=== PATIENT | male | born 1965 | race Caucasian/White ===

== ENCOUNTER 2022-02-15 00:32 | Day surgery (SDC) | payer BC, SELFPAY ==
[2022-01-30 13:47] VITALS: BMI 35.0
--- NOTE | 2022-02-11 11:46 | SUR.PREOP ---
pts called to report she has been unable to find mag citrate. let her know that mag citrate is currently unavailable and pt will need to procede with the golytely prep as ordered, skipping the mag citrate. voiced understanding.
--- NOTE | 2022-02-14 13:07 | P.PNAN_ITS ---
Anes - Initial Pre Proc Eval Procedure: Operation Date: 02/15/22 09:30 Proposed Procedures p Screening Colonoscopy - Gilmer Pereira MD Date/Time: 02/14/22 13:07 Surgeon: Gilmer Pereira MD Pre Op Diagnosis: neoplasm screening, hx of colon polyps Patient Data Age: 56 Gender: M Height: 1.85 m Weight: 120.5 kg Allergies Allergy/AdvReac Type Severity Reaction Status Date / Time No Known Allergies Allergy Verified 02/15/22 08:46 Home Medications Medication Instructions Recorded Confirmed Type calcium carbonate 600 mg-vitamin 1 cap PO DAILY 07/30/19 01/30/22 History D3 12.5 mcg (500 unit) capsule (Calcium 600 with Vitamin D3) vitamin B complex (B-Complex 1 tablet PO DAILY 07/30/19 01/30/22 History tablet) peg 3350-electrolytes 236 240 ml PO Q10M #4,000 mL 01/23/22 Rx gram-22.74 gram-6.74 gram-5.86 gram solution (Golytely) ascorbic acid (vitamin C) 500 mg 500 mg PO DAILY 01/30/22 01/30/22 History tablet (Vitamin C) losartan 50 mg tablet 50 mg PO DAILY 01/30/22 01/30/22 History zinc 50 mg tablet 50 mg PO DAILY 01/30/22 01/30/22 History Patient hx anesthesia problems: none Family hx anesthesia problems: none Results Review: All pre-operative results and documents have been reviewed as part of the pre- operative evaluation. [facility] Past Medical History Medical History (Updated 02/15/22 @ 09:53 by Gilmer Pereira MD) Clavicle fracture Dupuytren contracture Left hand Hemorrhoids Hypertension Rib fracture Surgical History Surgical History H/O colonoscopy History of appendectomy History of orthopedic surgery Left hand for Dupuytren contracture Hx of tonsillectomy Family History Family History Mother Diabetes mellitus Hypertension Social History Social History Smoking status: Never smoker Alcohol intake: former Substance use: former Substance use type: does not use Living arrangements: with family Gender identity (if verbalized by the patient): Male Spiritual care concerns: No Agree to blood products: Yes Anes - Eval Final PreProcedure Day of Procedure 02/14/22 13:07 Patient weight: obese Heart: regular rate and rhythm Lungs: clear to auscultation Airway: Mallampati scale class II Neurological: alert and oriented Last oral intake: >/= 8 hours ASA classification: III Emergent: no Anesthetic plan: proceed Anesthesia type and monitoring: general GIVS and standard monitoring Results Review: All pre-operative results and documents have been reviewed as part of the pre- operative evaluation. Informed Consent: The patient's anesthetic plan and its attendant risks and benefits were discussed with the patient/family/POA. Questions were solicited and answers provided to the satisfaction of the patient/family/POA.
[2022-02-15 08:40] VITALS: BP 152/96; PULSE 72; RESP 18; TEMP 36.3; O2SAT 98; BMI 34.0
[2022-02-15] MEDS: LACTATED RINGERS 1,000 ML 150 ML IV CONT (09:02)
--- NOTE | 2022-02-15 09:52 | PM.IMHP ---
H&P: HPI History of Present Illness Date/Time: 02/15/22 09:52 Chief Complaint: History of colon polyps. Narrative: This is a 56-year-old white male patient presents for screening colonoscopy. Patient has a history of multiple colon polyps removed from the colon 2019. Patient's current weight appetite bowel movements are normal. He denies abdominal pain. He has had no bleeding. Family history is significant his father had colon surgery for uncertain reason in the past. Is doing well. Patient is uncertain of any family history of colon polyps. Review of Systems Review of Systems: Review of systems noncontributory. [facility] Past Medical History Medical History (Updated 02/15/22 @ 09:53 by Gilmer Pereira MD) Clavicle fracture Dupuytren contracture Left hand Hemorrhoids Hypertension Rib fracture Surgical History Surgical History H/O colonoscopy History of appendectomy History of orthopedic surgery Left hand for Dupuytren contracture Hx of tonsillectomy Family History Family History Mother Diabetes mellitus Hypertension Social History Social History Smoking status: Never smoker Alcohol intake: former Substance use: former Substance use type: does not use Living arrangements: with family Gender identity (if verbalized by the patient): Male Spiritual care concerns: No Agree to blood products: Yes Meds Home Medications and Allergies Home Medications Medication Instructions Recorded Confirmed Type calcium carbonate 600 mg-vitamin 1 cap PO DAILY 07/30/19 01/30/22 History D3 12.5 mcg (500 unit) capsule (Calcium 600 with Vitamin D3) vitamin B complex (B-Complex 1 tablet PO DAILY 07/30/19 01/30/22 History tablet) peg 3350-electrolytes 236 240 ml PO Q10M #4,000 mL 01/23/22 Rx gram-22.74 gram-6.74 gram-5.86 gram solution (Golytely) ascorbic acid (vitamin C) 500 mg 500 mg PO DAILY 01/30/22 01/30/22 History tablet (Vitamin C) losartan 50 mg tablet 50 mg PO DAILY 01/30/22 01/30/22 History zinc 50 mg tablet 50 mg PO DAILY 01/30/22 01/30/22 History Allergies Allergy/AdvReac Type Severity Reaction Status Date / Time No Known Allergies Allergy Verified 02/15/22 08:46 Vital Signs Vital Signs - 24 hr 02/15/22 08:40 Temperature 97.3 F L Pulse Rate 72 Respiratory Rate 18 Blood Pressure 152/96 H Pulse Oximetry 98 Oxygen Delivery Room Air Exam Narrative: Physical exam reveals patient to be alert. Vital signs stable. HEENT exam is unremarkable. Patient is anicteric. Lungs are clear to auscultation and percussion. Heart is without murmur or extra sounds. Abdominal exam bowel sounds present soft nontender with no organomegaly. Digital external rectal exam is normal. Assessment and Plan Assessment and plan (1) History of colon polyps: Code(s): Z86.010 - Personal history of colonic polyps Status: Acute Assessment and Plan: Patient has a history of colon polyps. Plan is for surveillance colonoscopy now and at intervals in the future. Further recommendations will be given after colonoscopy.
[2022-02-15 10:35] VITALS: BP 119/65; PULSE 78; RESP 16; O2SAT 95
[2022-02-15 10:45] VITALS: BP 131/89; PULSE 70; RESP 18; O2SAT 94
[2022-02-15 10:55] VITALS: BP 120/86; PULSE 69; RESP 18; O2SAT 96
== END 2022-02-15 10:57 | disposition home or self-care (01) ==
PROVIDERS: PCP Nurse Practitioner Family; Visit Provider Internal Medicine Gastroenterology
PROC: 0DJD8ZZ Inspection of Lower Intestinal Tract, Via Natural or Artificial Opening Endoscopic (ICD-10-PCS; CPT 45378; principal; 2022-02-15 09:30)
DX: Z12.11 Encounter for screening for malignant neoplasm of colon (principal); D12.5 Benign neoplasm of sigmoid colon; K63.5 Polyp of colon; I10 Essential (primary) hypertension; M72.0 Palmar fascial fibromatosis [Dupuytren]; E66.9 Obesity, unspecified; Z68.34 Body mass index [BMI] 34.0-34.9, adult
CPT/HCPCS: 45385; 88305; J2704; J7120

== ENCOUNTER 2023-07-09 00:15 | Day surgery (SDC) | payer BC, SELFPAY ==
--- NOTE | 2023-06-26 08:14 | PC.NURSE ---
Report to the Outpatient Waiting Room, entrance under the green pavilion located off [facility], at time 0630 on date _07/09/22_. Planned Procedure Time: __829__. Time changes happen often and if your time is changed the preop area will call you the afternoon before. - You and your visitor will be asked to self-screen and do not enter if you have any COVID symptoms. - A mask is optional within the hospital at this time. Patients may have clear liquids (water, carbonated beverages, clear teas, apple juice) until EIGHT hours prior to surgery with a maximum of 20 ounces. - No food from midnight until time of surgery - Infants may have breast milk until 4 hours before surgery, formula 6 hours prior to surgery. - Children will be allowed to drink immediately following surgery. If applicable, please bring a bottle or sippy cup to assist with drinking. Juice, water, soda, and popsicles are readily available. For infants on formula, please bring formula the day of surgery. Pacifiers are allowed. Take the following medications with a SIP of water the morning of surgery: NONE DO NOT STOP ANY OF YOUR OTHER PRESCRIPTION MEDICATIONS PRIOR TO SURGERY ?EXCEPT THE FOLLOWING Medications to discontinue per physician VITAMINS/ SUPPLIMENTS Date to take last dose 07/06/23 Please no make-up, nail chilean, hairspray, perfume, deodorant, or body powder the day of surgery. No jewelry (including any body piercings) or valuables the day of surgery, leave them at home. Please take a shower or bath the night before, or the morning of, surgery with an antibacterial soap. Wear comfortable, loose fitting clothing. Children are encouraged to wear pajamas. - Jewelry must be removed prior to entering the operating room. Rings and piercings that are not removed may be cut off. - The hospital will not accept responsibility for valuables. - Please leave all valuables, including medications, at home the day of surgery. If you are going home after surgery, a licensed corrugated fastener driver must drive you home. - NO public transportation without another adult if you receive anesthesia. - We recommend that an adult stay with you for 24 hours following discharge. - We also recommend that you do not drive, make important decision, drink alcoholic beverages, or take any drugs that were not prescribed by your health care provider for at least 24 hours after your discharge time. For Pediatric surgeries, we recommend two adults accompany the child home. Follow any additional instructions given to you from your surgeon. If you or anyone in your household have experienced Covid symptoms in the past week, please notify your surgeon or the nurse liaison at the phone number below for possible testing. Telephone instructions given to ___PATIENTS_and asked if any additional questions and then verbalized understanding. Patient advised to call surgeon office or pre surgery nurse liaison [phone] if any additional questions.
[2023-06-26 08:19] VITALS: BMI 34.9
--- NOTE | 2023-07-09 07:00 | PM.HPGS ---
History of Present Illness History of Present Illness Chief complaint: Dupuytren's Contracture left hand Narrative: Patient seen and examined in pre-operative holding area. No interval change in medical history or symptoms. Patient recalls previous discussion of benefits and alternatives to procedure. Continues to desire to proceed with left ring and small finger fasciectomy for dupuytrens. Reviewed procedure, post-op expectations and risks including but not limited to bleeding, infection, injury to tendon/nerve/vessel, decreased hand function, stiffness, RSD, no change or worsening of symptoms, recurrence, incomplete release. I discussed the possible use of assistants and their participation in the case. Patient stated understanding and signed the consent form wishing to proceed. Review of Systems Review of Systems: All systems reviewed & are unremarkable except as noted in HPI and below PMFSH Past Medical History Medical History (Updated 05/13/23 @ 10:25 by Rosalee Palmer MD) Clavicle fracture Dupuytren contracture Left hand Hemorrhoids Hypertension Rib fracture Surgical History Surgical History H/O colonoscopy History of appendectomy History of orthopedic surgery Left hand for Dupuytren contracture Hx of tonsillectomy Family History Family History Mother Diabetes mellitus Hypertension Social History Social History Smoking status: Never smoker Alcohol intake: current Alcohol use details: RARE USE Substance use: never Substance use type: does not use Living arrangements: with family Gender identity (if verbalized by the patient): Male Spiritual care concerns: No Agree to blood products: Yes Meds Home Medications and Allergies Home Medications Medication Instructions Recorded Confirmed Type calcium carbonate 600 mg-vitamin 1 cap PO DAILY 07/30/19 05/13/23 History D3 12.5 mcg (500 unit) capsule (Calcium 600 with Vitamin D3) vitamin B complex (B-Complex 1 tablet PO DAILY 07/30/19 05/13/23 History tablet) ascorbic acid (vitamin C) 500 mg 500 mg PO DAILY 01/30/22 05/13/23 History tablet (Vitamin C) losartan 50 mg tablet 50 mg PO DAILY 01/30/22 05/13/23 History zinc 50 mg tablet 50 mg PO DAILY 01/30/22 05/13/23 History Allergies Allergy/AdvReac Type Severity Reaction Status Date / Time No Known Allergies Allergy Verified 07/09/23 07:48 Exam Narrative: unchanged Assessment and Plan Assessment and plan (1) Dupuytren contracture: Code(s): M72.0 - Palmar fascial fibromatosis [Dupuytren] Status: Acute Assessment and Plan: see above
--- NOTE | 2023-07-09 07:01 | W.PM.PROC2 ---
Procedure Note - Detailed Date of Procedure 07/09/23 Pre-op Diagnosis Dupuytren's Contracture left small and ring finger Post-op Diagnosis Same Procedure Performed left small and ring finger fasciectomy Surgeon Rosalee Palmer MD Anesthesia MAC Description of Procedure INFORMED CONSENT: The patient was seen and examined and marked in the pre-op area.? The patient signed the consent form. PROCEDURE IN DETAIL:The patient taken back to OR on the stretcher in supine position. Time out performed with anesthesia, surgeon and staff agreeing on patient's name site and surgery to be performed SCDs were placed on the lower extremities and inflated. A tourniquet was placed on {left} upper extremity and antibiotics given IV After anesthesia administered sedation I injected {6}cc 1%lido and 0.5% marcaine plain at the operative site The?{left upper extremity}?was prepped and draped in sterile fashion the??{left upper extremity} was? exsanguinated with Esmarch bandage and tourniquet inflated to 250mmHg I proceeded with making a longitudinal incision over origin of cord in palm proximal to distal palmar crease and diverging to both the ring and small finger cords. The incision was made obliquely across flexion creases. I elevated skin flaps above the cords to the ring and small fingers with littler scissors and 15 blade scalpel. The Cord was identified and dissected around circumferentially proximally and then transected with a 15 blade scalpel. I proceeded first with anterograde dissection of the cord going to the ring finger across the mpj and pipj until I was able to achieve full extension. Next, I proceeded with anterograde dissection of the cord to the small finger across the mpjoint though a separate ulnar incision had to be made to excise a separate ulnar cord to allow for full digit extension. The neurovascular bundles for both digits were identified and protected throughout the procedure. I irrigated with normal saline. Closure was done with 4-0 vicryl suture creating z-plastys across flexion creases as needed. A dressing of xeroform, 4x4, jared, and a volar splint was applied for patient safety, security, and comfort and secured with an nette bandage after the tourniquet was let down noting the hand was warm and well perfused. The patient was then awaken from anesthesia and transferred to the recovery room in stable condition.? Complications - none EBL- 0cc Disposition - home in stable conditions AM Billing Surgery - Charge Forward: Surgery Billing ([id number] and [id number])
[2023-07-09 08:03] VITALS: BP 155/95; PULSE 88; RESP 16; TEMP 36.9; O2SAT 98
--- NOTE | 2023-07-09 08:03 | P.PNAN_ITS ---
Anes - Initial Pre Proc Eval Procedure: Operation Date: 07/09/23 08:30 Proposed Procedures p Left Ring and Small Finger Fasciectomy - Rosalee Palmer MD Date/Time: 07/09/23 08:03 Surgeon: Rosalee Palmer MD Pre Op Diagnosis: Dupuytren's Contracture left hand Patient Data Age: 57 Gender: M Height: 1.85 m Weight: 118.6 kg Allergies Allergy/AdvReac Type Severity Reaction Status Date / Time No Known Allergies Allergy Verified 07/09/23 07:48 Home Medications Medication Instructions Recorded Confirmed Type calcium carbonate 600 mg-vitamin 1 cap PO DAILY 07/30/19 05/13/23 History D3 12.5 mcg (500 unit) capsule (Calcium 600 with Vitamin D3) vitamin B complex (B-Complex 1 tablet PO DAILY 07/30/19 05/13/23 History tablet) ascorbic acid (vitamin C) 500 mg 500 mg PO DAILY 01/30/22 05/13/23 History tablet (Vitamin C) losartan 50 mg tablet 50 mg PO DAILY 01/30/22 05/13/23 History zinc 50 mg tablet 50 mg PO DAILY 01/30/22 05/13/23 History Patient hx anesthesia problems: none Family hx anesthesia problems: none Results Review: All pre-operative results and documents have been reviewed as part of the pre- operative evaluation. [facility] [place] Past Medical History Medical History Clavicle fracture Dupuytren contracture Left hand Hemorrhoids Hypertension Rib fracture Surgical History Surgical History H/O colonoscopy History of appendectomy History of orthopedic surgery Left hand for Dupuytren contracture Hx of tonsillectomy Family History Family History Mother Diabetes mellitus Hypertension Social History Social History Smoking status: Never smoker Alcohol intake: current Alcohol use details: RARE USE Substance use: never Substance use type: does not use Living arrangements: with family Gender identity (if verbalized by the patient): Male Spiritual care concerns: No Agree to blood products: Yes Anes - Eval Final PreProcedure Day of Procedure 07/09/23 08:03 Patient weight: obese Heart: regular rate and rhythm Lungs: clear to auscultation Airway: Mallampati scale class II and other (2 attempts, grade 3 view, [place]ro[place] 2 for appy at [place]) Neurological: alert and oriented Last oral intake: >/= 8 hours ASA classification: II Emergent: no Anesthesia type and monitoring: general GIVS and standard monitoring Results Review: All pre-operative results and documents have been reviewed as part of the pre- operative evaluation. Informed Consent: The patient's anesthetic plan and its attendant risks and benefits were discussed with the patient/family/POA. Questions were solicited and answers provided to the satisfaction of the patient/family/POA.
[2023-07-09] MEDS: LACTATED RINGERS 1,000 ML 30 ML IV CONT (08:15)
[2023-07-09] MEDS: ceFAZolin 2 GM/D5W 50 ML 2 GM/50 ML BAG IVPB (08:18)
[2023-07-09] MEDS: LIDOCAINE HCL 1% LOCAL INJ 20 ML VIAL 10 ML INFILTRATE (08:29)
[2023-07-09 09:17] VITALS: BP 122/73; PULSE 83; RESP 14; O2SAT 93
[2023-07-09 09:47] VITALS: BP 118/73; PULSE 80; RESP 18; O2SAT 94
[2023-07-09 10:18] VITALS: BP 131/88; PULSE 78; RESP 17; O2SAT 93
[2023-07-09] MEDS: oxyCODONE HCL (*CRX) 5 MG TAB IR PO (10:26)
[2023-07-09 10:50] VITALS: BP 116/73; PULSE 73; RESP 18; O2SAT 95
[2023-07-09 11:15] VITALS: BP 111/72; PULSE 69; RESP 17; O2SAT 94
== END 2023-07-09 11:20 | disposition home or self-care (01) ==
PROVIDERS: PCP Nurse Practitioner Family; Visit Provider Plastic Surgery
PROC: (CPT 26045; principal; 2023-07-09 08:30)
DX: M72.0 Palmar fascial fibromatosis [Dupuytren] (principal); I10 Essential (primary) hypertension; E66.9 Obesity, unspecified; Z68.34 Body mass index [BMI] 34.0-34.9, adult; Z98.890 Other specified postprocedural states
CPT/HCPCS: 26123; 26125; 88304; A9270; J0690; J2250; J2704; J3010; J7120

== ENCOUNTER 2024-09-08 08:49 | Emergency (ER) | payer OTHER, SELFPAY ==
--- NOTE | ~2024-09-08 | XR_ITS ---
EXAMINATION: XR hand RT min 3V DATE: 09/08/2024 11:18 INDICATION: Crush injury with laceration to the region of the second metacarpophalangeal joint. TECHNIQUE: Posteroanterior, oblique and lateral views of the right hand were obtained. COMPARISON: None. FINDINGS: Bone alignment is normal. Subtle oblique linear lucency at the ulnar base of the second proximal phal anx consistent with nondisplaced fracture. Given the orientation of the fracture is may be intra-bhaskar cular but no definitive involvement of the articular surface is appreciated. Mild polyarticular osteo arthritis with typical distribution at the radial aspect of the carpus and at multiple predominantly distal interphalangeal joints. Soft tissue swelling at the second digit. IMPRESSION: 1. Nondisplaced potentially intra-articular fracture at the ulnar base of the right second proximal p halanx. Reviewed, dictated and finalized at location B. STERED ACCOUNT ADMINISTRATOR IMPRESSION: 1. Nondisplaced potentially intra-articular fracture at the ulnar base of the r ight second proximal phalanx.
[2024-09-08 08:55] VITALS: BP 174/93; PULSE 70; RESP 16; TEMP 36.7; O2SAT 95
--- OUTSIDE RECORDS SUMMARY | 2024-09-08 09:12 | XMS_ITS | Data Portability ---
Author Organization [facility] Address [address] [place] [phone] Assessment Encounter Date Assessment Date Assessment LastModified by Organization Details LastModified Time 10/22/2023 10/22/2023 Colonoscopy a few years ago was all clear. Not available 10/22/2023 16:04:46 04/21/2024 04/21/2024 Colonoscopy a few years ago was all clear. Not available 04/21/2024 16:28:44 Plan of Treatment Reminders Order Date Submit Date Provider Last Modified By Organization Details Last Modified Time Details Appointments ANY 15 2024 03:30P M ZIGGY Stallworth Not available Not available Not available Lab PSA, serum or plasma 2023 025 [email or web address] [facility], [address], [place], [address], 04/21/2024 16:39:50 HbA1c (hemoglo bin A1c), blood 2023 025 [email or web address] [facility], [address], [place], [address], 04/21/2024 16:39:50 CMP, serum or plasma 2023 025 [email or web address] [facility], [address], [place], [address], 04/21/2024 16:39:50 CBC w/ auto diff 2023 025 [email or web address] [facility], [address], [place], [address], 04/21/2024 16:39:50 lipid panel, serum 2023 025 [email or web address] [facility], [address], [address], [place], [address], 04/21/2024 16:39:50 TSH + free T4, serum 2023 025 [email or web address] [facility], [address], [address], [place], [address], 04/21/2024 16:39:50 TSH + free T4, serum 2023 024 [email or web address] [facility], [address], [address], [place], [address], 11/19/2023 14:27:08 PSA, serum or plasma 2023 024 [email or web address] [facility], [address], [address], [place], [address], 11/19/2023 14:27:08 lipid panel, serum 2023 024 [email or web address] [facility], [address], [place], [address], 11/19/2023 14:27:09 CMP, serum or plasma 2023 024 [email or web address], [address], [place], [address], 11/19/2023 14:27:08 CBC w/ auto diff 2023 024 [email or web address] [facility], [address], [place], [address], 11/19/2023 14:27:08 vitamin B12 + folate, serum or blood 2023 024 [email or web address], [address], [place], [address], 11/19/2023 14:27:08 HbA1c (hemoglo bin A1c), blood 2023 024 [email or web address] [facility], [address], [place], [address], 11/19/2023 14:27:08 Referral None recorded . Procedures None recorded . Surgeries None recorded . Imaging None recorded . Medication Orders None recorded . Patient TargetsNo targets recorded. Patient Instructions Encounter Date Encounter Id Patient Instructions Last Modified By Organization Details Last Modified Time 10/22/2023 [id number] A healthy lifestyle: care instructions Not available 10/22/2023 16:14:42 04/21/2024 [id number] A healthy lifestyle: care instructions Not available 04/21/2024 16:39:50 Reason for Referral None Reported. Results Created Date Observation Date Name Description Value Unit Range Abnormal Flag Note LastModifiedBy Organization Detail LastModifiedTime Result Notes None recorded. Problems Name Problem SNOMED Code Status Onset Date Resolution Date Notes Provider Name and Address Organization Details Recorded Time Benign essential hypertension 1689472 Active 2023 ZIGGY Stallworth Attn: Claudy sheehan,[address] [place], [address], [facility] 4 20:10:26 Body mass index 30+ - obesity 603791770 Active 2023 ZIGGY Stallworth Attn: Claudy sheehan,[address] [place], [address], [place] [facility] 4 20:10:28 Obesity 286238486 Active 2023 ZIGGY Stallworth Attn: Claudy sheehan,[address] [place], [address], [place] [facility] 4 20:10:28 Long-term drug therapy Active 2023 ZIGGY Stallworth Attn: Claudy sheehan,[address] [place], [address], [facility] 4 16:26:10 Prediabetes 955552219 Active 2023 ZIGGY Stallworth Attn: Claudy sheehan,[address] [facility], [place], [address], [facility] 4 11:50:10 Problem Notes None recorded. Procedures Surgical History Date Name Laterality Status Provider Name and Address Organization Details Recorded Time 07/09/19 procedure on hand completed Devan Mendez MA [facility] 04/21/2024 16:16:38 Appendectomy completed Devan Mendez MA [facility] 10/22/2023 17:01:16 Tonsillectomy completed Devan Mendez MA [facility] 10/22/2023 17:01:24 Imaging Results None recorded. Procedure Notes None recorded. Medical Equipment None Reported. Allergies No known drug allergies Medications Name Sig Start Date Stop Date Status Note LastModified by Organization Details LastModified Time losartan 50 mg tablet TAKE 1 TABLET BY MOUTH ONCE DAILY active Not Available Not Available No t Available tramadol 50 mg tablet TAKE 1 TABLET BY MOUTH EVERY 6 HOURS NEEDED FOR PAIN 2023 completed Not Available Not Available Not Available Vitals Date Recorded Body height Body mass index (BMI) Body weight Oxygen saturation Oxygen saturation in Arterial blood by Pulse oximetry Heart rate Systolic blood pressure Diastolic blood pressure Provider Name and Address Organization Details Last Updated DateTime 185.42 cm 34.8 kg/m2 373430. 67 g 97 % 97 % 97 /min 126 mm[Hg] 86 mm[Hg] Devan Mendez MA [facility] 15:57:56 Date Recorded Systolic blood pressure Diastolic blood pressure Provider Name and Address Organization Details Last Updated DateTime 10/22/2023 130 mm[Hg] 84 mm[Hg] IZGGY Stallworth Attn: Accounting, [facility], [place], [address], [facility] 10/22/2023 16:13:15 Date Recorded Body height Body mass index (BMI) Body weight Respiratory rate Oxygen saturation Oxygen saturation in Arterial blood by Pulse oximetry Heart rate Systolic blood pressure Diastolic blood pressure Provider Name and Address Organization Details Last Updated DateTime 185.42 cm 34.3 kg/m2 821044. 02 g 18 /min 96 % 96 % 60 /min 126 mm[Hg] 82 mm[Hg] Devan Mendez MA [facility] 16:18:30 Date Recorded Systolic blood pressure Diastolic blood pressure Provider Name and Address Organization Details Last Updated DateTime 04/21/2024 128 mm[Hg] 82 mm[Hg] ZIGGY Stallworth Attn: Accounting,[address] [facility], [place], [address], [facility] 04/21/2024 16:38:17 Social History Question Answer Notes LastModified by Organizat ion Details LastModified Time Tobacco Smoking Status Never Smoker Devan Mendez MA null, [facility] 10/22/2023 15:55:25 What Is Your Level Of Alcohol Consumption? Occasional Information not available 10/22/2023 Are You Blind Or Do You Have Difficulty Seeing? No Information n ot available 10/22/2023 What Is Your Level Of Caffeine Consumption? Occasional Information not available 10/22/2023 In The 14 Days Before Symptom Onset, Have You Had Close Contact With A Laboratory-confirm ed COVID-19 While That Case Was Ill? No Information n ot available 10/22/2023 In The 14 Days Before Symptom Onset, Have You Had Close Contact With A Person Who Is Under Investigation For COVID-19 While That Person Was Ill? No Information not available 10/22/2023 Have You Been To An Area Known To Be High Risk For COVID-19? No Information not available 10/22/2023 Are You Deaf Or Do You Have Serious Difficulty Hearing? No Information not available 10/22/2023 What Type Of Diet Are You Following? REGULAR Information n ot available 10/22/2023 Are There Any Guns Present In Your Home? No Information not available 10/22/2023 What Was The Date Of Your Most Recent Tobacco Screening? 04/21/2024 Information not available 04/21/2024 What Is Your Relationship Status? Information not available 10/22/2023 Do You Use Your Seat Belt Or Car Seat Routinely? Yes Information not available 10/22/2023 Do You Have Smoke And Carbon Monoxide Detectors In Your Home? Yes Information not available 10/22/2023 Do You Use Any Illicit Or Recreational Drugs? No Information not available 10/22/2023 Do You Use Sunscreen Routinely? No Information not available 10/22/2023 Has Tobacco Cessation Counseling Been Provided? Yes Information not available 10/22/2023 On What Date Was Tobacco Cessation Counseling Provided? 04/21/2024 Information not available 04/21/2024 Do You Or Have You Ever Used Any Other Forms Of Tobacco Or Nicotine? No Information not available 10/22/2023 Sex: Male Functional Status Question Answer Note LastModified by Organizat ion Details LastModified Time Are you able to care for yourself? Yes Information not available 10/22/2023 What is your exercise level? Occasional Information not available 10/22/2023 Mental Status None recorded. Family History Relationship Description Onset Age of this Age Resolved Age Notes LastModified by Organization Details LastModified Time Brother Malignant tumor of colon passed /colon [email or web address] Not available 04/21/2024 16:15:58 Brother Family history of cancer of colon tcarterma Not available 2023 16:14:49 Mother Diabetes mellitus [email or web address] Not available 2023 17:01:57 Father History of prostatism Troubl e Urinat ing, No cancer Pt. is on Cath tcarterma Not available 04/21/2024 16:20:32 Medical History Condition Response Coronary Artery Disease N Other N High Blood Pressure Y Atrial Fibrillation N Kidney or Bladder Problems N Thyroid Problems N GI Problems N Depression N COPD N Blood Clots N Skin Problems N Anemia N Heart Attack (PA) N Anxiety Disorder N Diabetes N Muscle, Joint, or Bone Problems N Seizures/Epilepsy N Acid Reflux (GERD) N Cancer N Stroke N Asthma N Allergies N High Cholesterol N Hepatitis N Liver Disease N Headaches N Heart Failure N Osteoporosis N Immunizations Vaccine Type Date Status Note Provider Nam e and Address Organization Details Recorded Time Tdap 05/01/2018 completed JLUIS Mendez, [facility] 04/21/2024 16:17:12 Influenza, split virus, quadrivalent, PF 05/01/2018 completed JLUIS Mendez, [facility] 04/21/2024 16:17:12 Past Encounters Encounter ID Performer Location Encounter Start Date Encounter Closed Date Diagnosis/Indication Diagnosis SNOMED-CT Code Diagnosis ICD10 Code Diagnosis Note [id number] ZIGGY Stallworth [facility] [employer] [address] [place] [address] 10/22/2023 15:38:13 10/22/2023 16:42:50 Benign essential hypertension 8692477 I10 stable on losartan 50mg daily. Cholesterol screening 27 7753668 Z13.220 fasting lipids due Diabetes m ellitus screening 366685306 Z13.1 a1c screening due Long-term drug therapy 692022507 Z79.899 cmp, cbc and b12, folate labs are due Screening for malignant neoplasm of prostate 480684505 Z12.5 PSA due Body mass index 30+ - obesity 675599174 Z68.34 discussed healthy diet, exercise, controllin g carbohydra masoud and added sugars in the diet Obesity 224423925 E66.9 discussed healthy diet, exercise, controllin g carbohydra masoud and added sugars in the diet Weight gain 0794161 R63. 5 screening thyroid panel due [id number] ZIGGY Stallworth [facility] [employer] [address] [place] [address] 04/21/2024 15:52:46 04/26/2024 14:54:57 Benign essential hypertension 5171879 I10 stable on losartan 50mg daily. Blood pressure is 128/82 Body mass index 30+ - obesity 873082348 Z68.34 BMI is 34.3 updated thyroid labs will be due in October Obesity 061585531 E66.9 discussed healthy diet, exercise, controllin g carbohydra masoud and added sugars in the diet Long-term drug therapy 153867010 Z79.899 cmp, cbc and b12, folate labs are due in October Screening for malignant neoplasm of prostate 505832779 Z12.5 PSA due in October Prediabetes 222028841 R7 3.03 5.8% A1c. Specifical ly discussed reducing simple carbs and added sugars in the diet in any exercise would be helpful to lower the A1c. Repeat lab in October Hyperlipidemia 39048865 E78.5 Mild elevation in LDL cholestero l. Dietary modificati ons and exercise are recommende d. Repeat fasting lipids in October Health Concerns Section Related Observation LastModified by Organization Detai ls LastModified Time None Recorded Concern Status LastModified by Organization Details LastModified Time None Recorded Advance Directives Directive None Recorded Payers Encounter Date Sequence Insurance Name Policy Number Policy Maynard Covered Member ID Maynard Member ID Guarantor Name 10/22/2023 1 [facility]: (PP[place] [id number] J Carlos Maldonadog [id number] J Carlos Maldonadog 04/21/2024 1 [facility] [id number] J Carlso Maldonadog [id number] J Carlos Amaris Notes Date Note Type Note Provider Name and Address Organization Details Recorded Time 4 text/html HypertensionReported bypatient.Notes:taking losartan 50mg daily. no complaints. has gained weight. ZIGGY Stallworth Attn: Accounting,[address] [facility], [place], [address], [facility] 11/04/2023 20:10:42 4 text/html HyperlipidemiaReported bypatient.Notes:November labs showed mild elevation in LDL cholesterol at 112, with stable HDL and triglycerides.HypertensionR eported bypatient.Notes:taking losartan 50mg daily. no complaints. Prediabetes 5.8% A1c on November 15, 2023 labs ZIGGY Stallworth Attn: Accounting,[address] [facility], [place], [address], [facility] 05/09/2024 11:51:00
--- NOTE | 2024-09-08 12:13 | ED.WOUNDLAC ---
HPI - Wound/Laceration General Chief Complaint: Wound/Laceration Stated Complaint: hand lac Time Seen by Provider: 09/08/24 10:15 Source: patient Mode of arrival: ambulatory Limitations: no limitations History of Present Illness HPI narrative: Patient is a 58-year-old male who presents the ED with report of a laceration to his right hand. Patient reports he was at work today and his right hand became caught in a dump truck tailgate. He sustained a laceration over his right 2nd MCP region. Complains of pain to this region. Denies any other injuries. Tetanus is up-to-date. Denies numbness. Related Data Home Medications ?Medication ?Instructions ?Recorded ?Confirmed ?Last Taken ?Type calcium 600 mg (as 1 cap PO DAILY 07/30/19 05/13/23 07/29/19 History carbonate)-vitamin D3 12.5 mcg (500 unit) capsule (Calcium with Vit D3) vitamin B complex (B-Complex 1 tablet PO DAILY 07/30/19 05/13/23 07/29/19 History tablet) ascorbic acid (vitamin C) 500 mg 500 mg PO DAILY 01/30/22 05/13/23 Unknown History tablet (Vitamin C) losartan 50 mg tablet 50 mg PO DAILY 01/30/22 05/13/23 Unknown History zinc 50 mg tablet 50 mg PO DAILY 01/30/22 05/13/23 Unknown History Allergies Allergy/AdvReac Type Severity Reaction Status Date / Time No Known Allergies Allergy Verified 09/08/24 10:27 Review of Systems Review of Systems: All systems reviewed & are unremarkable except as noted in HPI. All systems reviewed & are unremarkable except as noted in HPI and below PMFSH Past Medical History Medical History Hypertension Clavicle fracture Rib fracture Hemorrhoids Dupuytren contracture Left hand Surgical History Surgical History History of appendectomy H/O colonoscopy History of orthopedic surgery Left hand for Dupuytren contracture Hx of tonsillectomy Family History Family History Mother Diabetes mellitus Hypertension Social History Social History (Reviewed 09/08/24 @ 13:25 by LUCIA Tran Smoking status: Never smoker Alcohol intake: current Alcohol use details: RARE USE Substance use: never Substance use type: does not use Living arrangements: with family Gender identity (if verbalized by the patient): Male Spiritual care concerns: No Agree to blood products: Yes Exam Narrative: GENERAL: Well appearing, obese with BMI of 34.9, non-toxic, in no acute distress. HEAD: Normocephalic, atraumatic. RESPIRATORY: Airway patent, respirations nonlabored. CARDIOVASCULAR: Regular rate and rhythm. Radial pulses intact. MUSCULOSKELETAL: Moves all extremities. No gross deformities. Discomfort reported with full flexion of right 2nd digit. Tenderness to palpation over right 2nd MCP region with 1.5 cm linear laceration. No active bleeding. Wound edges approximate well. Sensation intact throughout hands and fingers. SKIN: Warm, dry, normal color. NEURO: A&O X3. Speech clear. Cranial nerves II-XII grossly intact. Steady gait. No ataxic movements. PSYCHIATRIC: Appropriate mood and affect. Normal interaction. Course Vital Signs Vital signs: Vital Signs Temperature 98.0 F 09/08/24 08:55 Pulse Rate 70 09/08/24 08:55 Respiratory Rate 16 09/08/24 08:55 Blood Pressure 174/93 H 09/08/24 08:55 Pulse Oximetry 95 09/08/24 08:55 Temperature 98.0 F 09/08/24 08:55 Pulse Rate 70 09/08/24 08:55 Respiratory Rate 16 09/08/24 08:55 Blood Pressure 174/93 H 09/08/24 08:55 Pulse Oximetry 95 09/08/24 08:55 Procedures Laceration Laceration 1: Date: 09/08/24 Time: 12:10 Site: hand Side (If applicable): right (2nd mcp region) Size (cm): 1.5 Description: linear Depth: simple, single layer Local Anesthetic: lidocaine 1% Amount of anesthesia used (mL): 5 Pre-repair: wound explored, irrigated and irrigated extensively ====== Skin Level ====== Skin layer closed with: nylon Size (cm): 4-0 Number of sutures: 5 Technique: simple, interrupted ====== Subcutaneous Layer ====== ====== Muscle Layer ====== ====== Tendon Layer ====== MDM - Wound/Laceration MDM Narrative Medical decision making narrative: X-ray of right hand showing small nondisplaced proximal phalanx fracture of 2nd digit. Consistent with exam and injury. Consistent with open fracture. Patient given dose of Ancef in the ED. Laceration was repaired without complications. Patient will be continued on Keflex for open fracture prophylaxis. Placed in a metal finger splint. Will be referred to Hand surgery for further evaluation. Discussed wound care instructions and strict return precautions. Patient voiced understanding. Tetanus up-to-date. Patient discharged in stable condition. Medical Records Attestation: I reviewed the patient's medical records. Imaging Data Attestation: I personally reviewed and interpreted this imaging study as follows: Radiologist's impression: ITS Impressions Hand X-Ray 09/08/24 11:19 IMPRESSION: 1. Nondisplaced potentially intra-articular fracture at the ulnar base of the right second proximal phalanx. Discharge Plan Discharge Clinical Impression: Laceration of right hand, Fracture of proximal phalanx of digit of right hand Patient Disposition: Home, Self-Care Condition: Stable Instructions: Antibiotic Form, Care For Your Stitches (ED), Laceration (ED), Finger Fracture (ED) Additional Instructions: You sustained a small fracture to your 2nd finger. Utilize metal finger splint for stabilization of fracture. Follow-up with Hand surgery for further evaluation of fracture. Call office to make appointment. Take antibiotics as prescribed for protection against infection of open fracture. Your sutures will need to be removed in the next 10-14 days. Return to the ED or visit an urgent care or your PCP for follow-up and wound check/suture removal. Keep the wound as dry as possible for 24 hours. You may remove the bandage after 24 hours and wash with simple soap and water, but do not scrub. Re-bandage when working with hands. Return to the ED if you experience severe pain, recurrent injury, uncontrolled bleeding, fever, chills, pus-like drainage, or redness/swelling/warmth surrounding the wound, as these could be signs of an infection. Patient Language: Citizen Of [place] Prescriptions: New cephalexin 500 mg capsule 500 mg PO Q6H 7 Days Qty: 28 0RF No Action vitamin B complex [B-Complex] Tablet 1 tablet PO DAILY calcium carbonate-vitamin D3 [Calcium 600 with Vitamin D3] 600 mg(1,500mg) -500 unit Capsule 1 cap PO DAILY losartan 50 mg tablet 50 mg PO DAILY ascorbic acid (vitamin C) [Vitamin C] 500 mg Tablet 500 mg PO DAILY zinc 50 mg Tablet 50 mg PO DAILY tramadol 50 mg tablet 50 mg PO Q6H PRN (Reason: pain) Qty: 14 0RF Follow-up/Referrals: Rosalee Palmer MD [Physician] - (HAND SURGERY) Jessenia,ATIF Jiang [Primary Care Provider] - Time of Disposition: 12:22
[2024-09-08] MEDS: ceFAZolin SODIUM 1 GM VIAL IM (13:14)
[2024-09-08 13:42] VITALS: BP 128/89; PULSE 74; RESP 18; O2SAT 100
== END 2024-09-08 13:43 | disposition home or self-care (01) ==
PROVIDERS: Emergency Provider Physician Assistant; PCP Physician Assistant
DX: S61.411A Laceration without foreign body of right hand, initial encounter (principal); S62.640A Nondisplaced fracture of proximal phalanx of right index finger, initial encounter for closed fracture; I10 Essential (primary) hypertension; W31.83XA Contact with special construction vehicle in stationary use, initial encounter
CPT/HCPCS: 12001; 29130; 73130; 96372; 99283; 99284; J0690

== ENCOUNTER 2025-05-23 08:31 | Day surgery (SDC) | payer OTHER, SELFPAY ==
[2025-02-18 15:33] VITALS: BMI 35.0
[2025-05-11 14:01] VITALS: BMI 36.2
--- NOTE | 2025-05-23 10:04 | WPDANESEPPF ---
Anes - Initial Pre Proc Eval Procedure: Operation Date: 05/23/25 11:15 Proposed Procedures p Screening Colonoscopy - Norberto Courtney MD Date/Time: 05/23/25 10:04 Surgeon: Norberto Courtney MD Pre Op Diagnosis: Personal history of colon polyps, unspecified Patient Data Age: 59 Gender: M Height: 1.85 m Weight: 124.5 kg Allergies Allergy/AdvReac Type Severity Reaction Status Date / Time No Known Allergies Allergy Verified 05/23/25 10:08 Home Medications ?Medication ?Instructions ?Recorded ?Confirmed ?Type calcium 600 mg (as 1 cap PO DAILY 07/30/19 05/11/25 History carbonate)-vitamin D3 12.5 mcg (500 unit) capsule (Calcium with Vit D3) vitamin B complex (B-Complex 1 tablet PO DAILY 07/30/19 05/11/25 History tablet) ascorbic acid (vitamin C) 500 mg 500 mg PO DAILY 01/30/22 05/11/25 History tablet (Vitamin C) losartan 50 mg tablet 50 mg PO DAILY 01/30/22 05/11/25 History zinc 50 mg tablet 50 mg PO DAILY 01/30/22 05/11/25 History gabapentin 100 mg capsule 100 mg PO BID 05/11/25 05/11/25 History Patient hx anesthesia problems: none Family hx anesthesia problems: none Results Review: All pre-operative results and documents have been reviewed as part of the pre-operative evaluation. [facility] Past Medical History Medical History Hypertension Clavicle fracture Rib fracture Hemorrhoids Dupuytren contracture Left hand Surgical History Surgical History History of appendectomy H/O colonoscopy History of orthopedic surgery Left hand for Dupuytren contracture Hx of tonsillectomy Family History Family History Mother Diabetes mellitus Hypertension Social History Social History Smoking status: Never smoker Alcohol intake: current Alcohol use details: occasional Substance use: never Substance use type: does not use Living arrangements: with family Gender identity (if verbalized by the patient): Male Spiritual care concerns: No Agree to blood products: Yes Anes - Eval Final PreProcedure Day of Procedure 05/23/25 10:04 Heart: regular rate and rhythm Lungs: clear to auscultation Airway: Mallampati scale class II Neurological: alert and oriented Last oral intake: >/= 8 hours ASA classification: II Emergent: no Anesthetic plan: proceed Anesthesia type and monitoring: monitored anesthesia care Results Review: All pre-operative results and documents have been reviewed as part of the pre-operative evaluation. Informed Consent: The patient's anesthetic plan and its attendant risks and benefits were discussed with the patient/family/POA. Questions were solicited and answers provided to the satisfaction of the patient/family/POA.
[2025-05-23 10:10] VITALS: BP 158/107; PULSE 73; RESP 18; TEMP 36.8; O2SAT 97; BMI 35.3
[2025-05-23] MEDS: LACTATED RINGERS 1,000 ML 150 ML IV CONT (10:29)
--- NOTE | 2025-05-23 10:55 | PM.IMHP ---
H&P: HPI History of Present Illness Date/Time: 05/23/25 10:55 Chief Complaint: Family history of colorectal cancer - history of polyps Narrative: This patient has family history of colorectal cancer. his father and his brother had both colorectal cancers, his brother at 60 years old . In addition, in the patient's first colonoscopy some polyps were found. Review of Systems Review of Systems: All systems reviewed & are unremarkable except as noted in HPI and below PMFSH Past Medical History Medical History Hypertension Clavicle fracture Rib fracture Hemorrhoids Dupuytren contracture Left hand Surgical History Surgical History History of appendectomy H/O colonoscopy History of orthopedic surgery Left hand for Dupuytren contracture Hx of tonsillectomy Family History Family History Mother Diabetes mellitus Hypertension Social History Social History Smoking status: Never smoker Alcohol intake: current Alcohol use details: occasional Substance use: never Substance use type: does not use Living arrangements: with family Gender identity (if verbalized by the patient): Male Spiritual care concerns: No Agree to blood products: Yes Meds Home Medications and Allergies Home Medications ?Medication ?Instructions ?Recorded ?Confirmed ?Type calcium 600 mg (as 1 cap PO DAILY 07/30/19 05/23/25 History carbonate)-vitamin D3 12.5 mcg (500 unit) capsule (Calcium with Vit D3) vitamin B complex (B-Complex 1 tablet PO DAILY 07/30/19 05/23/25 History tablet) ascorbic acid (vitamin C) 500 mg 500 mg PO DAILY 01/30/22 05/23/25 History tablet (Vitamin C) losartan 50 mg tablet 50 mg PO DAILY 01/30/22 05/23/25 History zinc 50 mg tablet 50 mg PO DAILY 01/30/22 05/23/25 History gabapentin 100 mg capsule 100 mg PO BID 05/11/25 05/23/25 History Allergies Allergy/AdvReac Type Severity Reaction Status Date / Time No Known Allergies Allergy Verified 05/23/25 10:08 Vital Signs Vital Signs - 24 hr 05/23/25 10:10 Temperature 98.2 F Pulse Rate 73 Respiratory Rate 18 Blood Pressure 158/107 H Pulse Oximetry 97 Oxygen Delivery Room Air Exam Const: General: cooperative and healthy appearing Resp: Effort & Inspection: normal respiratory effort and able to speak in complete sentences Auscultation: clear to auscultation bilaterally Cardio: Rate: regular rate Rhythm: regular rhythm GI: Inspection: normal to inspection GI Palp: No No hepatosplenomegaly present Auscultation: normal bowel sounds Rectal Exam: deferred Skin: General skin exam: normal color Psych: Appearance: grossly normal Mental Status: mental status grossly normal Assessment and Plan Assessment and plan (1) History of colon polyps: Code(s): Z86.010 - Personal history of colon polyps Status: Acute Assessment and Plan: The patient is deemed a good candidate for the procedure. Consent signed. Will proceed.
[2025-05-23 11:28] VITALS: BP 128/91; PULSE 64; RESP 16; O2SAT 98
[2025-05-23 11:38] VITALS: BP 117/83; PULSE 65; RESP 18; O2SAT 98
[2025-05-23 11:48] VITALS: BP 129/78; PULSE 67; RESP 18; O2SAT 100
--- NOTE | 2025-05-23 12:46 | WPDANESPN ---
Anes - Prog Note Post-Op Date/Time: 05/23/25 12:46 Cardiovascular status: normal Respiratory status: normal Airway patency: baseline Mental status: baseline Post-Op hydration status: normal Vital Signs: Last Vital Signs Temp 36.8 C 05/23/25 10:10 Pulse 67 05/23/25 11:48 Resp 18 05/23/25 11:48 BP 129/78 05/23/25 11:48 Pulse Ox 100 05/23/25 11:48 O2 Del Method Room Air 05/23/25 11:48 Pain Score (VAS): 0 I/O: Intake & Output 05/22/25 05/23/25 05/23/25 23:59 07:59 15:59 Intake Total 0 Balance 0 Post-procedural complaints: none Patient Feedback: Patient satisfied with anesthetic care.
== END 2025-05-23 12:23 | disposition home or self-care (01) ==
PROVIDERS: PCP Physician Assistant; Referring Provider Internal Medicine Gastroenterology; Visit Provider Internal Medicine Gastroenterology
PROC: 0DJD8ZZ Inspection of Lower Intestinal Tract, Via Natural or Artificial Opening Endoscopic (ICD-10-PCS; CPT 45378; principal; 2025-05-23 11:15)
DX: Z12.11 Encounter for screening for malignant neoplasm of colon (principal); D12.5 Benign neoplasm of sigmoid colon; Z80.0 Family history of malignant neoplasm of digestive organs
CPT/HCPCS: 45385

== ENCOUNTER 2025-05-23 14:24 | Outpatient (NON) | payer OTHER, SELFPAY ==
--- NOTE | 2025-05-23 | S_PTH ---
PATIENT: J Carlos Glez LOC: [facility] #:[id number] AGE/SX: 59/M ROOM: RE05/23/[address]: Norberto Courtney MD : 1965 BED: DIS: 05/23/2025 SPEC #: [id number] RECD: 05/25/25 07:19 STATUS: SOPHIE REBrenda #: [id number] HANK: 05/23/25 00:[address]: Norberto Courtney DEPT: [facility] Surgical RECD BY: Nadeen Lacy ENTERED: 05/25/25 07:19 SP TYPE: Surgical OTHR DR: Deidre Ruelas, PARandee Tissues: A - Colon Polypectomy Procedures: Hematoxylin and Eosin Stain Gross and Microscopic Level 4
== END 2025-05-23 14:25 | disposition home or self-care (01) ==
LOC: ANHLAB 05-24 14:25
PROVIDERS: PCP Physician Assistant; Visit Provider Internal Medicine Gastroenterology
DX: D12.5 Benign neoplasm of sigmoid colon (principal)
CPT/HCPCS: 88305